=== PATIENT | female | born 1970 | race Caucasian/White ===

== ENCOUNTER 2016-10-18 01:05 | Emergency (ER) | payer MEDICARE, MEDICAID ==
[~2016-10-18] VITALS: Ht 152.4 cm; Wt 91.0 kg
[~2016-10-18 01:05] MED LIST: AMOX500T2; ASPI-1035 PO; BENZ1TAB7 PO; LOSA1TAB34 PO; METF10002 PO; MONT10TA24 PO; OMEP20CA10; PARO30TA62 PO; RISP2TAB22 PO; SITA100T6 PO; TRAM50TA3 PO
[2016-10-18 01:40] LABS: BASOPHILS % 0.7 % (0.0-2.0); DIFFERENTIAL COMMENT 0; EOSINOPHILS % 2.7 % (0.0-5.0); HEMATOCRIT. 33.7 % (36.0-48.0); HEMOGLOBIN. 10.8 g/dL (12.0-16.0); LYMPHOCYTES % 37.4 % (20.0-50.0); MEAN CORPUSCULAR HEMOGLOBIN 25.5 pg (28.0-32.0); MEAN CORPUSCULAR HGB CONC 32.1 g/dL (31.0-37.0); MEAN CORPUSCULAR VOLUME 79.5 fL (81.0-99.0); MEAN PLATELET VOLUME 9.7 fl (7.4-10.4); MONOCYTES % 7.9 % (2.0-8.0); NEUTROPHILS % 51.3 % (40.0-76.0); PLATELET 228 x1000/uL (130-400); RED BLOOD CELL COUNT 4.24 mill/uL (4.2-5.4); RED CELL DISTRIBUTION WIDTH 15.3 % (11.6-14.6)
[2016-10-18 01:50] LABS: HCG SCREEN NEGATIVE
[2016-10-18 01:54] LABS: ALANINE AMINOTRANSFERASE 43 IU/L (13-61); ANION GAP 13; CALCIUM 8.2 mg/dL (8.5-10.1); CARBON DIOXIDE 27 mEq/L (21-32); CHLORIDE 103 mEq/L (98-107); INDEX HEMOLYSI 1 (1-3); INDEX ICTERIC 1 (1-4); INDEX LIPEMIC 1 (1-3); NT PRO B-TYPE NATRIURETIC PEP 131 pg/mL (5-125); TROPONIN I < 0.02 ng/mL (0.00-0.04); UREA NITROGEN BLOOD 10 mg/dL (7-21); eGFR > 60 mL/min (>60)
[2016-10-18 02:16] LABS: INR 0.9; PROTHROMBIN TIME 9.8 sec
[2016-10-18 03:36] VITALS: BP 155/94
[2016-10-18] MEDS ORDERED: IBUPROFEN 600MG TABLET PO ONE (04:45)
[2016-10-18] MEDS ORDERED: MAGNESIUM/ALUMINUM HYDROXIDE/SIMETHICONE 30ML UDC PO ONE (05:00)
== END 2016-10-18 05:55 | disposition home or self-care (01) ==
LOC: ER 01:11
DX: R07.89 Other chest pain (principal); J45.909 Unspecified asthma, uncomplicated; I11.0 Hypertensive heart disease with heart failure; I50.9 Heart failure, unspecified; Z79.899 Other long term (current) drug therapy; Z79.84 Long term (current) use of oral hypoglycemic drugs; Z79.1 Long term (current) use of non-steroidal anti-inflammatories (NSAID)
CPT/HCPCS: 36415; 71010; 80053; 83880; 84484; 84703; 85025; 85610; 93005; 99285

== ENCOUNTER 2017-11-02 15:46 | Inpatient (IN) | payer MEDICARE, MEDICAID ==
[~2017-11-02] VITALS: Ht 152.4 cm; Wt 99.8 kg
[~2017-11-02 15:46] MED LIST changes: -ASPI-1035 PO; +ASPI-1159 PO; -OMEP20CA10; +OMEP20CA10 PO; +SITA100T11 PO; -SITA100T6 PO
[2017-11-02] MEDS ORDERED: ONDANSETRON HCL 4MG/2ML VIAL IV STA (16:35)
[2017-11-02] MEDS ORDERED: SODIUM CHLORIDE 0.9% 1,000 ML IV ONE (16:35)
[2017-11-02] MEDS ORDERED: MORPHINE SULFATE 4 MG/ML CPJ (NOT FOR IM USE) IV STA (16:35)
[2017-11-02 16:57] LABS: BASOPHILS % 0.5 % (0.0-2.0); EOSINOPHILS % 0.2 % (0.0-5.0); HEMATOCRIT. 39.7 % (36.0-48.0); HEMOGLOBIN. 12.7 g/dL (12.0-16.0); LYMPHOCYTES % 16.7 % (20.0-50.0); MEAN CORPUSCULAR HEMOGLOBIN 24.4 pg (28.0-32.0); NEUTROPHILS % 77.6 % (40.0-76.0); PLATELET 458 x1000/uL (130-400); RED BLOOD CELL COUNT 5.22 mill/uL (4.2-5.4); RED CELL DISTRIBUTION WIDTH 17.1 % (11.6-14.6)
[2017-11-02 16:59] LABS: CHLORIDE 96 mEq/L (98-107)
[2017-11-02 17:04] LABS: D-DIMER 0.99 mg/L FEU (<0.50); PARTIAL THROMBOPLASTIN TIME 23.8 sec (23.4-31.0); PROTHROMBIN TIME 10.3 sec (9.4-11.6)
[2017-11-02 17:05] LABS: HCG SCREEN NEGATIVE
[2017-11-02 17:07] LABS: CLARITY URINE CLEAR (CLEAR); COLOR URINE YELLOW (YELLOW); KETONES URINE NEGATIVE (NEGATIVE); LEUKOCYTE ESTERASE URINE NEGATIVE (NEGATIVE); NITRITE URINE NEGATIVE (NEGATIVE); OCCULT BLOOD URINE NEGATIVE (NEGATIVE); PH URINE 7.5 (4.5-8.0); PROTEIN URINE NEGATIVE (NEGATIVE); SPECIFIC GRAVITY URINE 1.009 (1.005-1.030); UROBILINOGEN URINE 0.2 E.U./dL (0.2-1.0)
[2017-11-02] MEDS ORDERED: SODIUM CHLORIDE 0.9% 1000ML BAG (SEPSIS BOLUS) IV ONE (17:15)
[2017-11-02] MEDS ORDERED: IOHEXOL-350 100 ML BOTTLE ONE (17:50)
[2017-11-02] MEDS ORDERED: LEVOFLOXACIN 750MG PREMIX 150 ML IV ONE (18:45)
[2017-11-02 22:00] VITALS: BP 144/48
[2017-11-02 22:14] VITALS: BP 144/48
[2017-11-02] MEDS ORDERED: DEXTROSE 50% WATER 50ML SYRINGE IV PRN (22:45)
[2017-11-02] MEDS ORDERED: LEVOFLOXACIN 500MG PREMIX 100 ML IV SCH (22:45)
[2017-11-02] MEDS ORDERED: HYDROCODONE/ACETAMINOPHEN 10/325MG TABLET PO PRN (22:52)
[2017-11-02] MEDS: BLOOD SUGAR DIAGNOSTIC STRIP TEST SCH (23:12)
[2017-11-02] MEDS: RISPERIDONE 1MG TABLET PO SCH (23:12)
[2017-11-02] MEDS: INSULIN LISPRO 100 UNITS/ML SUBCUT SCH (23:22)
[2017-11-03] VITALS: BP 174/48
[2017-11-03] MEDS ORDERED: ONDANSETRON 4MG ODT PO PRN (00:30)
[2017-11-03] MEDS ORDERED: LORAZEPAM 1MG TABLET PO PRN (00:30)
[2017-11-03] MEDS: IPRATROPIUM/ALBUTEROL 0.5-3(2.5)MG/3ML NEB HHN SCH ×6 (00:38→21:47)
[2017-11-03] MEDS ORDERED: LORAZEPAM 2MG/ML CPJ IV PRN (00:45)
[2017-11-03 04:00] VITALS: BP 137/57
[2017-11-03] MEDS: BLOOD SUGAR DIAGNOSTIC STRIP TEST SCH ×4 (06:37→21:38)
[2017-11-03 08:00] VITALS: BP 130/53
[2017-11-03] MEDS: PAROXETINE HCL 20MG TABLET PO SCH (08:40)
[2017-11-03] MEDS: LINAGLIPTIN 5MG TABLET PO SCH (08:41)
[2017-11-03] MEDS: ENOXAPARIN 30MG/0.3ML SYR SUBCUT SCH ×2 (08:42→21:38)
[2017-11-03] MEDS: METFORMIN HCL 500MG TABLET PO SCH ×2 (08:43→18:11)
[2017-11-03] MEDS: BENZTROPINE MESYLATE 1MG TABLET PO SCH (08:43)
[2017-11-03] MEDS: ASPIRIN 81MG EC TABLET PO SCH (08:43)
[2017-11-03] MEDS: INSULIN LISPRO 100 UNITS/ML SUBCUT SCH ×4 (08:48→21:37)
[2017-11-03] MEDS ORDERED: MEDICATION NOT ON FORMULARY EA (Sitagliptin Phosphate (Januvia) 1 TAB) PO SCH (09:00)
[2017-11-03] MEDS ORDERED: MEDICATION NOT ON FORMULARY EA (Paroxetine Hcl 1 TAB) PO SCH (09:00)
[2017-11-03] MEDS: LOSARTAN POTASSIUM 50 MG TABLET PO SCH (09:37)
[2017-11-03] MEDS: ACETAMINOPHEN 325MG TABLET PO PRN ×2 (09:55→17:05)
[2017-11-03 12:00] VITALS: BP 124/55
[2017-11-03] MEDS ORDERED: ACETAMINOPHEN 325MG TABLET PO PRN (13:30)
[2017-11-03 14:41] LABS: BASOPHILS % 0.4 % (0.0-2.0); HEMATOCRIT. 35.1 % (36.0-48.0); HEMOGLOBIN. 11.3 g/dL (12.0-16.0); LYMPHOCYTES % 15.1 % (20.0-50.0); MEAN CORPUSCULAR HEMOGLOBIN 24.6 pg (28.0-32.0); MEAN CORPUSCULAR VOLUME 76.5 fL (81.0-99.0); MEAN PLATELET VOLUME 9.1 fl (7.4-10.4); MONOCYTES % 4.3 % (2.0-8.0); NEUTROPHILS % 80.2 % (40.0-76.0); PLATELET 377 x1000/uL (130-400); RED BLOOD CELL COUNT 4.59 mill/uL (4.2-5.4); RED CELL DISTRIBUTION WIDTH 17.6 % (11.6-14.6)
[2017-11-03 16:00] VITALS: BP 125/55
[2017-11-03] MEDS ORDERED: MEDICATION NOT ON FORMULARY EA (Risperidone 1 TAB) PO SCH (17:00)
[2017-11-03] MEDS: MONTELUKAST SODIUM 10MG TABLET PO SCH (17:05)
[2017-11-03] MEDS: LEVOFLOXACIN 750MG PREMIX 150 ML IV SCH (18:10)
[2017-11-03 20:25] VITALS: BP 133/59
[2017-11-03] MEDS: INSULIN GLARGINE UD 100 UNITS/ML SYR SUBCUT SCH (21:37)
[2017-11-03] MEDS: OMEPRAZOLE 20MG CAPSULE EXTENDED RELEASE PO SCH (21:38)
[2017-11-03] MEDS: RISPERIDONE 1MG TABLET PO SCH (21:38)
[2017-11-04] VITALS (7 sets, daily range): BP systolic 98–121; BP diastolic 44–61
[2017-11-04] MEDS: IPRATROPIUM/ALBUTEROL 0.5-3(2.5)MG/3ML NEB HHN SCH ×5 (01:43→17:05)
[2017-11-04] MEDS: BLOOD SUGAR DIAGNOSTIC STRIP TEST SCH ×4 (06:25→20:51)
[2017-11-04 07:02] LABS: BASOPHILS % 0.5 % (0.0-2.0); EOSINOPHILS % 0.1 % (0.0-5.0); HEMATOCRIT. 33.1 % (36.0-48.0); HEMOGLOBIN. 10.7 g/dL (12.0-16.0); LYMPHOCYTES % 18.6 % (20.0-50.0); MEAN CORPUSCULAR HEMOGLOBIN 24.5 pg (28.0-32.0); MEAN CORPUSCULAR VOLUME 76.2 fL (81.0-99.0); MEAN PLATELET VOLUME 9.3 fl (7.4-10.4); NEUTROPHILS % 74.8 % (40.0-76.0); PLATELET 312 x1000/uL (130-400); RED BLOOD CELL COUNT 4.35 mill/uL (4.2-5.4)
[2017-11-04] MEDS: PAROXETINE HCL 20MG TABLET PO SCH (08:14)
[2017-11-04] MEDS: ASPIRIN 81MG EC TABLET PO SCH (08:14)
[2017-11-04] MEDS: LOSARTAN POTASSIUM 50 MG TABLET PO SCH (08:15)
[2017-11-04] MEDS: METFORMIN HCL 500MG TABLET PO SCH ×2 (08:15→18:52)
[2017-11-04] MEDS: BENZTROPINE MESYLATE 1MG TABLET PO SCH (08:15)
[2017-11-04] MEDS: LINAGLIPTIN 5MG TABLET PO SCH (08:15)
[2017-11-04] MEDS: ENOXAPARIN 30MG/0.3ML SYR SUBCUT SCH ×2 (08:16→20:50)
[2017-11-04] MEDS: INSULIN LISPRO 100 UNITS/ML SUBCUT SCH ×4 (08:22→21:17)
[2017-11-04] MEDS: INSULIN GLARGINE UD 100 UNITS/ML SYR SUBCUT SCH (09:37)
[2017-11-04] MEDS ORDERED: LORAZEPAM 2MG/ML CPJ IV PRN (12:00)
[2017-11-04] MEDS: MONTELUKAST SODIUM 10MG TABLET PO SCH (18:52)
[2017-11-04] MEDS: LEVOFLOXACIN 750MG PREMIX 150 ML IV SCH (19:44)
[2017-11-04] MEDS: RISPERIDONE 1MG TABLET PO SCH (20:50)
[2017-11-04] MEDS: OMEPRAZOLE 20MG CAPSULE EXTENDED RELEASE PO SCH (20:50)
== END 2017-11-04 21:45 | disposition home or self-care (01) | DRG 871 ==
LOC: ER 15:52 → 6WST 18:59 → ENRESERV 20:25
PROVIDERS: ADMIT Internal Medicine; ATTEND Internal Medicine
DX: A41.9 Sepsis, unspecified organism (principal); J18.9 Pneumonia, unspecified organism; E87.8 Other disorders of electrolyte and fluid balance, not elsewhere classified; Z68.41 Body mass index [BMI] 40.0-44.9, adult; E66.01 Morbid (severe) obesity due to excess calories; F20.9 Schizophrenia, unspecified; I10 Essential (primary) hypertension; E11.65 Type 2 diabetes mellitus with hyperglycemia; F31.9 Bipolar disorder, unspecified; F41.9 Anxiety disorder, unspecified; M94.0 Chondrocostal junction syndrome [Tietze]; J45.909 Unspecified asthma, uncomplicated; M19.90 Unspecified osteoarthritis, unspecified site; Z90.710 Acquired absence of both cervix and uterus; Z88.8 Allergy status to other drugs, medicaments and biological substances; Z79.82 Long term (current) use of aspirin; Z79.84 Long term (current) use of oral hypoglycemic drugs; Z79.899 Other long term (current) drug therapy; Z71.3 Dietary counseling and surveillance
CPT/HCPCS: 36415; 70551; 71045; 71275; 74177; 76705; 80053; 81003; 82962; 83605; 83690; 83880; 84484; 84703; 85025; 85379; 85610; 85730; 86850; 86900; 87040; 93005; 93306; 94640; 96365; 96366; 96375; 97161; 97166; 99291; C1893; J1650; J1815; J1956; J2060; J2270; J2405; J7030; J7620; Q0162; Q9967

== ENCOUNTER 2021-09-16 13:07 | Emergency (ER) | payer MEDICARE, MEDICAID ==
[~2021-09-16] VITALS: Ht 157.5 cm; Wt 97.0 kg
[~2021-09-16 13:07] MED LIST changes: -AMOX500T2; -ASPI-1159 PO; +ASPI-1497 PO; +METF-416 PO; -METF10002 PO; -MONT10TA24 PO; +MONT10TA32 PO; -OMEP20CA10 PO; +OMEP20CA14 PO; -RISP2TAB22 PO; +RISP2TAB85 PO
[2021-09-16] MEDS ORDERED: ASPIRIN 325MG EC TABLET PO ONE (14:00)
[2021-09-16 14:23] LABS: BASOPHILS % 0.7 % (0.0-2.0); EOSINOPHILS % 0.6 % (0.0-5.0); HEMATOCRIT. 37.4 % (36.0-48.0); HEMOGLOBIN. 11.7 g/dL (12.0-16.0); LYMPHOCYTES % 12.7 % (20.0-50.0); MEAN CORPUSCULAR HEMOGLOBIN 22.6 pg (28.0-32.0); MEAN PLATELET VOLUME 8.9 fl (7.4-10.4); MONOCYTES % 6.6 % (2.0-8.0); NEUTROPHILS % 79.4 % (40.0-76.0); PLATELET 362 x1000/uL (130-400); RED CELL DISTRIBUTION WIDTH 19.5 % (11.6-14.6)
[2021-09-16] MEDS ORDERED: IPRATROPIUM BROMIDE (0.02%) 0.5MG/2.5ML NEB HHN STA (14:23)
[2021-09-16] MEDS ORDERED: ONDANSETRON HCL 4MG/2ML INJ IV ONE (14:30)
[2021-09-16] MEDS ORDERED: KETOROLAC 30MG/ML VIAL IV ONE (14:30)
[2021-09-16] MEDS: ALBUTEROL (0.083%) 2.5MG/3ML NEB HHN SCH ×3 (14:30→15:30)
[2021-09-16 14:32] LABS: CHLORIDE 106 mEq/L (98-107)
[2021-09-16 14:58] LABS: PHOSPHORUS 3.5 mg/dL (2.5-4.9)
[2021-09-16] MEDS ORDERED: MORPHINE SULFATE 4 MG/ML CPJ (NOT FOR IM USE) IV ONE (15:30)
[2021-09-16 15:34] VITALS: BP 170/92
[2021-09-16] MEDS ORDERED: IPRATROPIUM BROMIDE (0.02%) 0.5MG/2.5ML NEB ONE (18:23)
[2021-09-16] MEDS ORDERED: IBUP-2028 MT (18:39)
== END 2021-09-16 21:06 | disposition home or self-care (01) ==
LOC: ER 13:33
DX: J45.909 Unspecified asthma, uncomplicated (principal); M06.9 Rheumatoid arthritis, unspecified; E11.9 Type 2 diabetes mellitus without complications; I10 Essential (primary) hypertension; Z79.82 Long term (current) use of aspirin; Z88.8 Allergy status to other drugs, medicaments and biological substances; Z79.899 Other long term (current) drug therapy
CPT/HCPCS: 36415; 71045; 80053; 83690; 83735; 83880; 84100; 84484; 85025; 93005; 94640; 96374; 96375; 99285; J1885; J2270; J2405

== ENCOUNTER 2023-01-25 19:55 | Emergency (ER) | payer MEDICARE, MEDICAID ==
[~2023-01-25] VITALS: Ht 165.1 cm; Wt 91.0 kg
[~2023-01-25 19:55] MED LIST changes: -BENZ1TAB7 PO; +BENZ1TAB78 PO; +IBUP-2028 MT; +MONT-39 PO; -MONT10TA32 PO
[2023-01-25 20:21] VITALS: O2SAT 100
[2023-01-25] MEDS ORDERED: ONDANSETRON HCL 4MG/2ML INJ IM ONE (23:45)
[2023-01-25] MEDS ORDERED: KETOROLAC 60MG/2ML VIAL IM ONE (23:45)
[2023-01-25 23:53] VITALS: BP 158/85
[2023-01-26] MEDS ORDERED: METOCLOPRAMIDE HCL 10MG/2ML VIAL IV ONE (00:30)
[2023-01-26] MEDS ORDERED: DIPHENHYDRAMINE 50MG/ML VIAL IV ONE (00:30)
[2023-01-26] MEDS ORDERED: IBUP-2028 MT (01:27)
[2023-01-26] MEDS ORDERED: ONDA4TAB11 PO (01:28)
[2023-01-26 02:15] VITALS: PULSE 75; RESP 18; TEMP 98.3
== END 2023-01-26 02:16 | disposition home or self-care (01) ==
LOC: ER 19:55
DX: R51.9 Headache, unspecified (principal); F41.9 Anxiety disorder, unspecified; J45.909 Unspecified asthma, uncomplicated; F32.9 Major depressive disorder, single episode, unspecified; E11.9 Type 2 diabetes mellitus without complications; I10 Essential (primary) hypertension; Z79.899 Other long term (current) drug therapy
CPT/HCPCS: 99285; 81025; 96372; 96374; 70450; 96375; J1885; J2405; J1200; J2765